=== PATIENT | male | born 1990 | race Two or more races ===

== ENCOUNTER 2019-12-27 08:17 | Emergency (ER) | payer MEDICAID ==
[~2019-12-27] VITALS: Ht 180.3 cm; Wt 76.2 kg
[2019-12-27] MEDS ORDERED: CEFTRIAXONE 250 MG IM ONE (09:00)
[2019-12-27] MEDS ORDERED: AZITHROMYCIN 500 MG TABLET PO ONE (09:00)
--- NOTE | 2019-12-27 09:30 | NUR ---
nikhil care of pt. pt here for painfuil urination after unprotected sex with a new partner. pt denies hematuria. no other c/o. no apparent distress. no family at bedside
[2019-12-27] MEDS ORDERED: CEFTRIAXONE 250 MG ONE (09:38)
[2019-12-27] MEDS ORDERED: AZITHROMYCIN 500 MG TABLET ONE (09:38)
--- NOTE | 2019-12-27 09:45 | NUR ---
pt has been medicated per order. well tolerated
[2019-12-27 10:13] VITALS: BP 139/75
== END 2019-12-27 10:17 | disposition home or self-care (01) ==
LOC: ED 08:39
DX: N34.2 Other urethritis (principal); R36.9 Urethral discharge, unspecified; R30.0 Dysuria
CPT/HCPCS: 96372; 99283; J0696